=== PATIENT | male | born 1970 | race Caucasian/White ===

== ENCOUNTER 2019-07-02 11:13 | Emergency (ER) | payer OTHER ==
[2019-07-02 11:18] VITALS: BP 110/75; PULSE 91; TEMP 97.8; BMI 20.5
--- NOTE | 2019-07-02 11:53 | PDOC ---
History of Present Illness - General Chief Complaint: Pain Stated Complaint: LEFT THIGH PAIN Time Seen by Provider: 07/02/19 11:43 - History of Present Illness Initial Comments: Mr. English is a 48 y/o male with no significant PMH presenting with left lateral thigh pain that started 3 days ago. Reports that he woke up with the pain and that it has been difficult to walk. Denies fall, trauma, injury, assault. Does not do physical activity for work. No recent exercise or increase in physical activity. Does not recall any bites. SocHx: 20 pack year smoking hx Past History - Past Medical History Allergies/Adverse Reactions: Allergies Allergy/AdvReac Type Severity Reaction Status Date / Time No Known Allergies Allergy Verified 07/02/19 11:15 Home Medications: Ambulatory Orders NK [No Known Home Medication] 07/02/19 Cardiac Disorders: No COPD: No - Psycho Social/Smoking Cessation Hx Smoking History: Current every day smoker Number of Cigarettes Smoked Daily: 20 Information on smoking cessation initiated: Yes 'Breaking Loose' booklet given: 11/26/14 Hx Alcohol Use: No Drug/Substance Use Hx: No Substance Use Type: None Review of Systems - Review of Systems Comments:: ROS GENERAL/CONSTITUTIONAL: No fever or chills. No weakness._ HEAD, EYES, EARS, NOSE AND THROAT: No change in vision. No change in hearing. No sore throat._ CARDIOVASCULAR: No chest pain or shortness of breath_ RESPIRATORY: Reports chronic cough. GASTROINTESTINAL: No nausea, vomiting, diarrhea or constipation._ GENITOURINARY: No dysuria, frequency, or change in urination._ MUSCULOSKELETAL: Reports left lateral thigh pain. No neck or back pain._ SKIN: No rash_ NEUROLOGIC: No headache, vertigo, loss of consciousness, or change in strength/ sensation._ ENDOCRINE: No increased thirst. No abnormal weight change_ HEMATOLOGIC/LYMPHATIC: No anemia, easy bleeding, or history of blood clots._ ALLERGIC/IMMUNOLOGIC: No hives or skin allergy._ *Physical Exam - Vital Signs Last Vital Signs Temp Pulse Resp BP Pulse Ox 97.8 F 91 H 19 110/75 7 L 07/02/19 11:14 07/02/19 11:14 07/02/19 11:14 07/02/19 11:14 07/02/19 11:14 - Physical Exam Comments: GENERAL: Awake, alert, and oriented to person/place/time, in no acute distress_ HEAD: No signs of trauma, normocephalic, atraumatic _ EYES: PERRLA, EOMI, sclera anicteric, conjunctiva clear_ ENT: Hearing grossly normal, nares patent, oropharynx clear without exudates. No uvular deviation. Moist mucosa_ NECK: Normal ROM, supple, no lymphadenopathy, JVD, or masses_ LUNGS: No distress, speaks in full sentences, clear to auscultation bilaterally _ HEART: Regular rate and rhythm, normal S1 and S2, no murmurs appreciated, peripheral pulses normal and equal bilaterally._ ABDOMEN: Soft, nontender, normoactive bowel sounds. No guarding, no rebound. No masses_ EXTREMITIES: TTP left lateral thigh, no bruising, no skin changes, no bite [place] , no erythema. Full ROM and 5/5 strength and sensation in bilateral hips/knees/ankles. Pulses 2+ and equal bilaterally. NEUROLOGICAL: Cranial nerves II through XII grossly intact. Normal speech, normal gait, no focal sensorimotor deficits _ SKIN: Warm, Dry, normal turgor, no rashes or lesions noted_ Medical Decision Making - Medical Decision Making 07/02/19 1155 48M with no significant PMH, daily smoker, presenting with left lateral thigh pain that started 3 days ago. No trauma. No bruising/erythema. DDx is broad and includes muscle strain vs femur fx. Obtain XR of the left hip and femur given new onset pain w/o hx of trauma. 07/02/19 13:35 XR left femur does not show any fx. Patient reports improved pain with 600 mg motrin PO. Plan to d/c home with pcp f/u, Tylenol/Motrin for pain control. D/w Dr. Rosado. Discharge - Discharge Information Problems reviewed: Yes Clinical Impression/Diagnosis: Left thigh pain Condition: Stable Disposition: HOME - Admission No - Follow up/Referral Referrals: Grisel Rosado MD [Primary Care Provider] - - Patient Discharge Instructions Patient Printed Discharge Instructions: Smoking Cessation Additional Instructions: Your x-ray did not show any fracture of the left thigh where you are having pain. Please alternative between Tylenol and Motrin as needed for your pain (follow the instructions on the package). Please see your primary care physician Dr. Rosado in 1 week to follow up with your left leg pain. If you experience any new, worsening, or concerning symptoms, including fever, chills, nausea/vomiting, leg weakness, changes in the pain, in ability to bear weight on the leg, or any other concerns, please return to the emergency department. - Post Discharge Activity
[2019-07-02] MEDS ORDERED: IBUPROFEN 600 MG TABLET (FP) PO ONE ×2 (11:57→11:59)
--- NOTE | 2019-07-02 12:48 | PDOC ---
Attending Attestation - Resident Resident Name: Ridge Tomas - ED Attending Attestation I have performed the following: I have examined & evaluated the patient, The case was reviewed & discussed with the resident, I agree w/resident's findings & plan - HPI HPI: 07/02/19 12:44 48-year-old male with no past medical history other than smoking presents with atraumatic left lateral thigh pain for 3 days. Does not recall any injury or strain, developed very focal and nonradiating sharp pain to his left lateral thigh reproducible with palpation, has not noted any swelling or rash or bruising. Denies any back pain or paresthesias or weakness, no bowel or bladder issues, no fevers or chills, no constitutional symptoms. Took Tylenol and Motrin with only temporary relief, tried CBD yesterday also with temporary relief, presents now for evaluation. - Physicial Exam PE: 07/02/19 12:45 Vital signs stable, ambulating comfortably and steadily, appears older than stated age No midline spine tenderness to palpation or deformity Full range of motion with 5 out of 5 flexion and extension of both hips/knees/ ankle/toes. 2+ distal pulses. There is a very focal area of reproducible tenderness in the lateral left proximal femur, no rash or soft tissue swelling or hematoma, no palpable bone deformity. - Medical Decision Making 07/02/19 12:46 48-year-old male with atraumatic and very localized left thigh pain, likely musculoskeletal in etiology given how focally reproducible it is, less likely radicular or infectious. Question musculoskeletal contusion, rule out fracture (long smoking history?). No evidence of vascular process or infectious process. Left femur x-ray Trial of ibuprofen Dispo accordingly
== END 2019-07-02 13:55 | disposition home or self-care (01) ==
LOC: FER 11:13
DX: M79.652 Pain in left thigh (principal); F17.210 Nicotine dependence, cigarettes, uncomplicated
CPT/HCPCS: 73523-TC-FY; 73552-TC-LT-FY; 99282-25

== ENCOUNTER 2022-01-16 20:40 | Emergency (ER) | payer OTHER ==
[2022-01-16 20:55] VITALS: BP 120/79; PULSE 89; TEMP 98.3; BMI 26.2
== END 2022-01-16 22:26 | disposition home or self-care (01) ==
LOC: JER 20:40
DX: U07.1 COVID-19 (principal)
CPT/HCPCS: 99283-25; C9803-CS; U0003; U0005